=== PATIENT | female | born 2005 | race Caucasian/White ===

== ENCOUNTER 2024-03-31 07:30 | Emergency (ER) | payer BC ==
[~2024-03-31] VITALS: Ht 157.5 cm; Wt 73.9 kg
[2024-03-31 07:35] VITALS: BP 107/66; PULSE 74; RESP 16; TEMP 97.1; O2SAT 99
[2024-03-31 07:48] VITALS: BP 107/66; PULSE 74; RESP 16; TEMP 97.1; O2SAT 99
[2024-03-31] MEDS: NEOMYCIN/POLYMYXIN/BACITRACIN 0.9 GM/1 PKT TP STA (08:17)
== END 2024-03-31 08:18 | disposition home or self-care (01) ==
LOC: MED 07:30
DX: S01.01XA Laceration without foreign body of scalp, initial encounter (principal); Y04.2XXA Assault by strike against or bumped into by another person, initial encounter; Y93.89 Activity, other specified; Y92.89 Other specified places as the place of occurrence of the external cause; Y99.8 Other external cause status
CPT/HCPCS: 12001; 99282

== ENCOUNTER 2024-04-07 08:47 | Emergency (ER) | payer BC ==
[~2024-04-07] VITALS: Ht 162.6 cm; Wt 74.8 kg
[2024-04-07 08:53] VITALS: BP 99/61; PULSE 74; RESP 22; TEMP 98.4; O2SAT 98
[2024-04-07 10:27] VITALS: BP 101/61; PULSE 77; RESP 16; TEMP 98.2; O2SAT 98
== END 2024-04-07 10:27 | disposition home or self-care (01) ==
LOC: MED 08:47
DX: S01.01XD Laceration without foreign body of scalp, subsequent encounter (principal); Z48.00 Encounter for change or removal of nonsurgical wound dressing; X58.XXXD Exposure to other specified factors, subsequent encounter
CPT/HCPCS: 99281